=== PATIENT | male | born 1995 | race Caucasian/White ===

== ENCOUNTER → 2017-07-26 | Outpatient (CLI) | payer BC ==
--- NOTE | 2017-07-26 16:13 | DIAGNOSTIC IMAGING REPORT ---
LEFT CALF ULTRASOUND CLINICAL HISTORY: LOWER LEFT MASS/LUMP CALF COMPARISON STUDY: None. FINDINGS: Trace edema seen within the left medial calf. No masses identified. No loculated fluid collections. IMPRESSION: Trace edema within the left calf. No masses identified. Electronically signed by: Oneal Rodriguez M.D. 07/26/2017 4:12 PM Dictated Date/Time: 07/26/2017 4:10 PM
== END ==
LOC: C.ULTR 12:14
PROVIDERS: ATTEND Family Medicine
DX: R22.42 Localized swelling, mass and lump, left lower limb (principal)